=== PATIENT | male | born 1955 | race Caucasian/White ===

== ENCOUNTER → 2024-01-13 | Day surgery (SDC) | payer MEDICARE ==
[~2024-01-13] MED LIST: DEXAMETHASONE SOD PHOS 10 MG/1 ML VIAL ONE; EPHEDRINE SULFATE INJ 50 MG/ML VIAL ONE; EPINEPHRINE HCL 1:1000 1ML 1 MG/ML AMP ONE; FENTANYL CITRATE/PF 100MCG/2 ML INJ ONE; GLYCOPYRROLATE INJ 0.2 MG/ML VIAL ONE; HUMALOG SC; JARDIANCE25 MG SC; LANTUS 3ML100 UNITS/ SQ; LIDOCAINE 1% W/EPINEPHRINE 20 ML VIAL ONE; LIDOCAINE HCL 2% LOCAL INJ 5 ML SDV VIAL INJ ONE; METFORMIN HCL500 MG PO; MIDAZOLAM HCL 2 MG/2 ML VIAL ONE; MULTI-VITAMIN1 EACH PO; MUPIROCIN 2% OINT 22 GM TUBE ONE; NEOSTIGMINE 1 MG/ML 10ML VIAL ONE; ONDANSETRON HCL INJ 2MG/ML 2ML 2 MG/ML VIAL ONE; PROPOFOL IV EMULSION 10 MG/ML 20 ML VIAL ONE; ROCURONIUM BROMIDE 10 MG/ML 5ML VIAL IV ONE; SEVOFLURANE INHAL SOLN 250 ML PEN BTL ONE
[2024-01-13] MEDS: LACTATED RINGER'S 1,000 ML ONE (06:36)
[2024-01-13 10:09] VITALS: TEMP 97.6
[2024-01-13] MEDS: FENTANYL CITRATE/PF 100MCG/2 ML INJ ONE (10:30)
[2024-01-13] MEDS: HYDROCODONE/APAP 5MG-325MG TAB ONE (11:10)
[2024-01-13 11:15] VITALS: BP 161/89; PULSE 63; RESP 15; O2SAT 97
== END | disposition home or self-care (01) ==
LOC: OR 05:35
PROVIDERS: ATTEND Otolaryngology Otolaryngology/Facial Plastic Surgery
DX: J32.0 Chronic maxillary sinusitis (principal); J32.2 Chronic ethmoidal sinusitis; J34.89 Other specified disorders of nose and nasal sinuses; H69.83 Other specified disorders of Eustachian tube, bilateral; I10 Essential (primary) hypertension; E11.9 Type 2 diabetes mellitus without complications; Z79.84 Long term (current) use of oral hypoglycemic drugs; Z79.4 Long term (current) use of insulin; Z79.899 Other long term (current) drug therapy
CPT/HCPCS: 31240; 31255; 31267; 36415; 42999; 82948; 88305; 93005; J0171; J1100; J2001; J2250; J2405; J2704; J2710; J3010; J7121; 88304